=== PATIENT | female | born 1960 | race Caucasian/White ===

== ENCOUNTER → 2016-12-09 | Outpatient (CLI) | payer MEDICAID ==
[~2016-12-09] VITALS: Ht 170.2 cm; Wt 128.4 kg
[~2016-12-09] MED LIST: AMIO200T33 PO; ASPI325T4 PO; CARV3.1240 PO; FURO40TA4 PO; LISI10TA6 PO; SIMV-13 PO
[2016-12-09 11:25] VITALS: BP 152/85
[2016-12-09 12:05] VITALS: BP 137/77
[2016-12-09 16:26] LABS: Basophils # (auto) 0.1 uL; Basophils % (auto) 0.7 % (0.0-2.0); Eosinophils # (auto) 0.2 uL; Eosinophils % (auto) 2.1 % (0.0-7.0); Hematocrit 44.9 % (36.0-46.0); Lymphocytes # (auto) 2.6 uL; Lymphocytes % (auto) 31.6 % (10.0-50.0); Mean Corpuscular Hemoglobin 29.1 pg (28.0-32.0); Mean Corpuscular Hgb Conc. 33.4 g/dL (32.0-36.0); Mean Corpuscular Volume 87.3 fL (80.0-100.0); Mean Platelet Volume 11.3 fL (7.4-10.4); Monocytes # (auto) 0.7 uL; Monocytes % (auto) 9.2 % (0.0-12.0); Neutrophils # (auto) 4.6 uL; Neutrophils % (auto) 56.4 % (37.0-80.0); Platelet Count (auto) 279 10^3/uL (140-450); Red Cell Distribution Width 15.4 % (11.6-16.0); SUSPECT VIEW TRANSMISSION; White Blood Cell 8.1 10^3/uL (4.4-10.8)
[2016-12-09 16:43] LABS: Partial Thromboplastin Time 28.7 sec (22.64-33.71); Prothrombin Time 10.3 sec (9.37-12.3)
[2016-12-09 16:48] LABS: BUN/Creatinine Ratio 36.5; Calcium 9.1 mg/dL (8.5-10.1); Potassium 4.6 mmol/L (3.5-5.1)
== END | disposition home or self-care (01) ==
LOC: Rad HDHVI 11:00
PROVIDERS: ATTEND Internal Medicine Cardiovascular Disease
DX: I10 Essential (primary) hypertension (principal); D64.9 Anemia, unspecified; R79.1 Abnormal coagulation profile
CPT/HCPCS: 36415; 71020; 80048; 85025; 85610; 85730; 93005; G0463

== ENCOUNTER 2016-12-12 09:05 | Day surgery (SDC) | payer MEDICAID ==
[~2016-12-12] VITALS: Ht 170.2 cm; Wt 128.4 kg
[2016-12-12] MEDS ORDERED: MIDAZOLAM HCL 1MG/1ML-2 ML VIAL ONE (10:52)
[2016-12-12] MEDS ORDERED: fentaNYL CITRATE 100 MCG/2 ML VL ONE (10:52)
[2016-12-12] MEDS ORDERED: ANGIOMAX 250 MG VIAL IV ONE (10:53)
[2016-12-12] MEDS ORDERED: SODIUM CHL 0.9% 50 ML ONE (10:53)
== END 2016-12-12 14:00 | disposition home or self-care (01) ==
LOC: CATH 09:05
PROVIDERS: ATTEND Internal Medicine Cardiovascular Disease
DX: I25.5 Ischemic cardiomyopathy (principal); I10 Essential (primary) hypertension; E78.5 Hyperlipidemia, unspecified; E66.9 Obesity, unspecified
CPT/HCPCS: 93458; C1760; C1894; J3010; J7030; 99152; J2250

== ENCOUNTER → 2017-01-24 | Outpatient (CLI) | payer MEDICAID ==
[2017-01-24 09:35] VITALS: BP 120/68
[2017-01-24 10:08] VITALS: BP 123/67
[2017-01-24 16:25] LABS: Basophils # (auto) 0.1 uL; Basophils % (auto) 0.7 % (0.0-2.0); Eosinophils # (auto) 0.2 uL; Eosinophils % (auto) 2.7 % (0.0-7.0); Hematocrit 46.2 % (36.0-46.0); Hemoglobin 15.3 g/dL (12.2-16.2); Lymphocytes # (auto) 2.3 uL; Mean Corpuscular Volume 87.9 fL (80.0-100.0); Mean Platelet Volume 11.1 fL (7.4-10.4); Monocytes # (auto) 0.7 uL; Monocytes % (auto) 8.9 % (0.0-12.0); Neutrophils # (auto) 4.7 uL; Neutrophils % (auto) 58.7 % (37.0-80.0); Platelet Count (auto) 304 10^3/uL (140-450); White Blood Cell 8.1 10^3/uL (4.4-10.8)
[2017-01-24 16:32] LABS: INR 0.99 (0.9-1.15); Partial Thromboplastin Time 32.2 sec (22.64-33.71); Prothrombin Time 10.7 sec (9.37-12.3)
[2017-01-24 16:37] LABS: BUN/Creatinine Ratio 25.4; Calcium 9.3 mg/dL (8.5-10.1); Potassium 4.4 mmol/L (3.5-5.1)
== END | disposition home or self-care (01) ==
LOC: Rad HDHVI 09:00
PROVIDERS: ATTEND Internal Medicine Cardiovascular Disease
DX: I10 Essential (primary) hypertension (principal); D64.9 Anemia, unspecified; R79.1 Abnormal coagulation profile; Z01.812 Encounter for preprocedural laboratory examination
CPT/HCPCS: 36415; 71020; 80048; 85025; 85610; 85730; 93005; G0463

== ENCOUNTER 2017-01-30 10:59 | Inpatient (IN) | payer MEDICAID ==
[~2017-01-30 10:59] MED LIST changes: +IOHEXOL 350 MG/ML 100ML IJ ONE; +LIDOCAINE 2%HCL (LOCAL ANESTH.) INJ 20ML MDV ONE
[2017-01-30] MEDS ORDERED: VANCOMYCIN HCL 1000 MG VL ONE (11:51)
[2017-01-30] MEDS ORDERED: VANCOMYCIN 1GM/250ML D5W 250 ML IV ONE (11:51)
[2017-01-30] MEDS ORDERED: ceFAZolin 1GM/50ML D5W 50 ML IV ONE (11:51)
[2017-01-30] MEDS ORDERED: fentaNYL CITRATE 100 MCG/2 ML VL ONE (12:13)
[2017-01-30] MEDS ORDERED: MIDAZOLAM HCL 1MG/1ML-2 ML VIAL ONE ×2 (12:14→12:35)
[2017-01-30] MEDS ORDERED: LIDOCAINE 2%HCL (LOCAL ANESTH.) INJ 20ML MDV ONE (12:40)
[2017-01-30] MEDS ORDERED: ACETAMINOPHEN 325 MG TAB PO PRN (15:15)
[2017-01-30] MEDS ORDERED: NITROGLYCERIN 0.4 MG SL TAB SL PRN (15:15)
[2017-01-30] MEDS ORDERED: LORazepam 0.5 MG TAB PO PRN (15:15)
[2017-01-30] MEDS ORDERED: MORPHINE SULF INJ 2 MG/ML SYRINGE 1ML IV PRN (15:15)
[2017-01-30] MEDS ORDERED: HYDROcodone-ACET 5/325MG TAB ONE (15:21)
[2017-01-30 17:00] VITALS: BP 114/56
[2017-01-30] MEDS: HYDROcodone-ACET 5/325MG TAB PO PRN (21:08)
[2017-01-30] MEDS: VANCOMYCIN 1GM/250ML D5W 250 ML IV SCH (21:29)
[2017-01-30 22:04] VITALS: BP 106/63
[2017-01-31] MEDS: HYDROcodone-ACET 5/325MG TAB PO PRN (02:14)
[2017-01-31 05:01] VITALS: BP 130/77
[2017-01-31 09:00] VITALS: BP 147/80
[2017-01-31] MEDS: VANCOMYCIN 1GM/250ML D5W 250 ML IV SCH (09:36)
[2017-01-31 13:00] VITALS: BP 137/89
[2017-01-31 17:00] VITALS: BP 128/70
== END 2017-01-31 19:45 | disposition home or self-care (01) | DRG 161 ==
LOC: CATH 10:59 → TELE-WESTW 11:00
PROVIDERS: ADMIT Internal Medicine Cardiovascular Disease; ATTEND Internal Medicine Cardiovascular Disease
PROC: 0JH609Z Insertion of Cardiac Resynchronization Defibrillator Pulse Generator into Chest Subcutaneous Tissue and Fascia, Open Approach (ICD-10-PCS; principal; 2017-01-30)
PROC: 02HK3KZ Insertion of Defibrillator Lead into Right Ventricle, Percutaneous Approach (ICD-10-PCS; 2017-01-30)
PROC: 02H63KZ Insertion of Defibrillator Lead into Right Atrium, Percutaneous Approach (ICD-10-PCS; 2017-01-30)
DX: I50.21 Acute systolic (congestive) heart failure (principal); I42.0 Dilated cardiomyopathy; E66.01 Morbid (severe) obesity due to excess calories; J44.9 Chronic obstructive pulmonary disease, unspecified; I11.0 Hypertensive heart disease with heart failure; G47.33 Obstructive sleep apnea (adult) (pediatric)
CPT/HCPCS: 33225; 33249; 71010; 93005; 99152; J0690; J2250

== ENCOUNTER 2017-02-26 04:15 | Inpatient (IN) | payer MEDICAID ==
[~2017-02-26] VITALS: Ht 170.2 cm; Wt 137.2 kg
[~2017-02-26 04:15] MED LIST changes: -IOHEXOL 350 MG/ML 100ML IJ ONE; -LIDOCAINE 2%HCL (LOCAL ANESTH.) INJ 20ML MDV ONE
[2017-02-26] MEDS ORDERED: LORazepam 2MG/ML-1ML VIAL IV ONE (04:45)
[2017-02-26 04:57] LABS: Basophils # (auto) 0 uL; Basophils % (auto) 0.5 % (0.0-2.0); Eosinophils # (auto) 0.2 uL; Eosinophils % (auto) 2.9 % (0.0-7.0); Hematocrit 43.7 % (36.0-46.0); Hemoglobin 14.6 g/dL (12.2-16.2); Lymphocytes # (auto) 2.9 uL; Lymphocytes % (auto) 35.5 % (10.0-50.0); Mean Corpuscular Hemoglobin 29.4 pg (28.0-32.0); Mean Corpuscular Hgb Conc. 33.4 g/dL (32.0-36.0); Mean Corpuscular Volume 87.8 fL (80.0-100.0); Mean Platelet Volume 9.8 fL (7.4-10.4); Monocytes # (auto) 0.7 uL; Monocytes % (auto) 8.9 % (0.0-12.0); Neutrophils # (auto) 4.2 uL; Neutrophils % (auto) 52.2 % (37.0-80.0); Platelet Count (auto) 266 10^3/uL (140-450); Red Cell Distribution Width 15.1 % (11.6-16.0); SUSPECT VIEW TRANSMISSION; White Blood Cell 8.1 10^3/uL (4.4-10.8)
[2017-02-26 05:06] LABS: Albumin 3.5 g/dL (3.4-5.0); BUN/Creatinine Ratio 27.4; Calcium 8.7 mg/dL (8.5-10.1); Magnesium 1.8 mg/dL (1.6-2.6); Potassium 4.5 mmol/L (3.5-5.1)
[2017-02-26 05:15] LABS: Bilirubin, Total 0.7 mg/dL (0.2-1.0)
[2017-02-26] MEDS ORDERED: SODIUM CHLORIDE 0.9% 1,000 ML IV ONE (07:40)
[2017-02-26] MEDS ORDERED: DILTIAZEM HCL 25 MG/5 ML VIAL IV ONE (07:45)
[2017-02-26] MEDS ORDERED: ALBUTEROL SULF 2.5 MG/0.5ML(0.5%) NEB SOLN NEB PRN (13:00)
[2017-02-26] MEDS ORDERED: MORPHINE SULF INJ 2 MG/ML SYRINGE 1ML IV PRN ×2 (13:00)
[2017-02-26] MEDS ORDERED: NITROGLYCERIN 0.4 MG SL TAB SL PRN (13:00)
[2017-02-26] MEDS ORDERED: PROMETHAZINE HCL 25 MG/ML 1ML IV PRN (13:00)
[2017-02-26] MEDS ORDERED: LACTULOSE 20Gm/30ML SOLN PO PRN (13:00)
[2017-02-26] MEDS ORDERED: ACETAMINOPHEN 500 MG TAB PO PRN (13:00)
[2017-02-26] MEDS ORDERED: LORazepam 0.5 MG TAB PO PRN (13:00)
[2017-02-26] MEDS ORDERED: SPIR25TA89 (13:02)
[2017-02-26] MEDS ORDERED: SPIR25TA89 PO (13:13)
[2017-02-26 13:21] VITALS: BP 126/78
[2017-02-26] MEDS ORDERED: ASPirin-EC 325mg tab PO ONE (13:30)
[2017-02-26] MEDS ORDERED: CARVEDILOL 3.125 MG TAB PO ONE (13:30)
[2017-02-26] MEDS ORDERED: NITROGLYCERIN 0.2MG/HR TOPICAL PATCH TD ONE (13:30)
[2017-02-26] MEDS ORDERED: AMIODARONE HCL 200 MG TAB PO ONE (13:30)
[2017-02-26] MEDS ORDERED: LISINOPRIL 10 MG TAB PO ONE (13:30)
[2017-02-26 13:49] LABS: INR 1.01 (0.9-1.15); Partial Thromboplastin Time 31.4 sec (22.64-33.71); Prothrombin Time 10.9 sec (9.37-12.3)
[2017-02-26 14:17] VITALS: BP 104/60
[2017-02-26 17:00] VITALS: BP 127/82
[2017-02-26] MEDS: FUROSEMIDE 40 MG TAB PO SCH (17:36)
[2017-02-26] MEDS: CARVEDILOL 3.125 MG TAB PO SCH (21:42)
[2017-02-26] MEDS: ATORVASTATIN 20 MG TAB PO SCH (21:43)
[2017-02-26] MEDS: TEMAZEPAM 15 MG CAP PO PRN (21:43)
[2017-02-26 22:00] VITALS: BP 91/56
[2017-02-27 05:00] VITALS: BP 112/60
[2017-02-27] MEDS: FUROSEMIDE 40 MG TAB PO SCH ×3 (05:31→18:02)
[2017-02-27 06:04] LABS: Cholesterol 160 mg/dL (< 200); HDL Cholesterol 47 mg/dL (40-59); LDL Cholesterol 108 mg/dL (< 100); Triglycerides 127 mg/dL (< 150)
[2017-02-27 08:25] VITALS: BP 93/77
[2017-02-27] MEDS ORDERED: NITROGLYCERIN 0.2MG/HR TOPICAL PATCH TD SCH (10:00)
[2017-02-27] MEDS: ASPirin-EC 325mg tab PO SCH (10:00)
[2017-02-27] MEDS: LISINOPRIL 10 MG TAB PO SCH (10:02)
[2017-02-27] MEDS: AMIODARONE HCL 200 MG TAB PO SCH (10:02)
[2017-02-27] MEDS: CARVEDILOL 3.125 MG TAB PO SCH ×2 (10:03→22:00)
[2017-02-27 12:02] VITALS: BP 110/75
[2017-02-27] MEDS ORDERED: LIDOCAINE 2%HCL (LOCAL ANESTH.) INJ 20ML MDV ONE (12:21)
[2017-02-27] MEDS ORDERED: VANCOMYCIN HCL 1000 MG VL ONE (12:37)
[2017-02-27] MEDS ORDERED: ceFAZolin 1GM/50ML D5W 50 ML IV ONE ×2 (12:38→12:45)
[2017-02-27] MEDS ORDERED: VANCOMYCIN 1GM/250ML D5W 250 ML IV ONE ×2 (12:38→12:45)
[2017-02-27] MEDS ORDERED: VANCOMYCIN HCL 1000 MG VL IR ONE (12:45)
[2017-02-27] MEDS ORDERED: fentaNYL CITRATE 100 MCG/2 ML VL ONE (13:49)
[2017-02-27] MEDS ORDERED: MIDAZOLAM HCL 1MG/1ML-2 ML VIAL ONE (13:49)
[2017-02-27] MEDS ORDERED: IOHEXOL 350 MG/ML 100ML IJ ONE (13:57)
[2017-02-27] MEDS: HYDROcodone-ACET 5/325MG TAB PO PRN ×2 (15:44→22:32)
[2017-02-27 17:36] VITALS: BP 90/54
[2017-02-27] MEDS: VANCOMYCIN 1GM/250ML D5W 250 ML IV SCH (21:21)
[2017-02-27 22:00] VITALS: BP 104/67
[2017-02-27] MEDS: TEMAZEPAM 15 MG CAP PO PRN (22:31)
[2017-02-27] MEDS: ATORVASTATIN 20 MG TAB PO SCH (22:31)
[2017-02-28 05:00] VITALS: BP 90/56
[2017-02-28] MEDS: FUROSEMIDE 40 MG TAB PO SCH (06:00)
[2017-02-28 09:30] VITALS: BP 104/65
[2017-02-28] MEDS: VANCOMYCIN 1GM/250ML D5W 250 ML IV SCH (09:33)
[2017-02-28] MEDS: AMIODARONE HCL 200 MG TAB PO SCH (09:45)
[2017-02-28] MEDS: CARVEDILOL 3.125 MG TAB PO SCH (10:00)
[2017-02-28] MEDS: ASPirin-EC 325mg tab PO SCH (10:00)
[2017-02-28] MEDS: LISINOPRIL 10 MG TAB PO SCH (10:00)
[2017-02-28] MEDS ORDERED: DOXY-216 PO (10:38)
[2017-02-28 14:08] VITALS: BP 90/56
== END 2017-02-28 15:00 | disposition home or self-care (01) | DRG 177 ==
LOC: ER 04:15 → TELE 04:16 → TELE-EAST 14:17
PROVIDERS: ADMIT Internal Medicine; ATTEND Internal Medicine
PROC: 02WA3MZ Revision of Cardiac Lead in Heart, Percutaneous Approach (ICD-10-PCS; principal; 2017-02-27)
DX: T82.128A Displacement of other cardiac electronic device, initial encounter (principal); I42.0 Dilated cardiomyopathy; Z68.42 Body mass index [BMI] 45.0-49.9, adult; I11.0 Hypertensive heart disease with heart failure; I50.9 Heart failure, unspecified; E66.01 Morbid (severe) obesity due to excess calories; I25.10 Atherosclerotic heart disease of native coronary artery without angina pectoris; I25.5 Ischemic cardiomyopathy; E78.5 Hyperlipidemia, unspecified; J44.9 Chronic obstructive pulmonary disease, unspecified; G47.30 Sleep apnea, unspecified; Y83.8 Other surgical procedures as the cause of abnormal reaction of the patient, or of later complication, without mention of misadventure at the time of the procedure; I25.2 Old myocardial infarction; Z88.7 Allergy status to serum and vaccine; Z79.899 Other long term (current) drug therapy; Z90.49 Acquired absence of other specified parts of digestive tract; Z83.3 Family history of diabetes mellitus; Z80.0 Family history of malignant neoplasm of digestive organs; Z87.891 Personal history of nicotine dependence; Y92.89 Other specified places as the place of occurrence of the external cause
CPT/HCPCS: 33215; 36415; 71010; 71020; 80053; 80061; 80307; 82550; 83735; 84443; 84484; 85025; 85610; 85652; 85730; 86141; 93005; 94761; 96361; 96374; J0690; J2250

== ENCOUNTER → 2017-03-28 | Outpatient (CLI) | payer MEDICAID ==
[~2017-03-28] MED LIST changes: +DOXY-216 PO; +SPIR25TA89; +SPIR25TA89 PO
[2017-03-28 10:45] VITALS: BP 94/58
[2017-03-28 11:30] VITALS: BP 110/62
[2017-03-28 16:06] LABS: Basophils # (auto) 0 uL; Basophils % (auto) 0.7 % (0.0-2.0); CONDITION AutoValidated; Eosinophils # (auto) 0.2 uL; Eosinophils % (auto) 2.2 % (0.0-7.0); Hematocrit 41.2 % (36.0-46.0); Hemoglobin 13.8 g/dL (12.2-16.2); Lymphocytes # (auto) 1.7 uL; Lymphocytes % (auto) 24.8 % (10.0-50.0); Mean Corpuscular Hemoglobin 29.4 pg (28.0-32.0); Mean Corpuscular Hgb Conc. 33.5 g/dL (32.0-36.0); Mean Corpuscular Volume 87.7 fL (80.0-100.0); Mean Platelet Volume 10.7 fL (7.4-10.4); Monocytes # (auto) 0.6 uL; Monocytes % (auto) 8.3 % (0.0-12.0); Neutrophils # (auto) 4.5 uL; Platelet Count (auto) 274 10^3/uL (140-450); Red Cell Distribution Width 15.6 % (11.6-16.0)
[2017-03-28 16:17] LABS: INR 0.97 (0.9-1.15); Partial Thromboplastin Time 30.3 sec (22.64-33.71); Prothrombin Time 10.6 sec (9.37-12.3)
[2017-03-28 16:27] LABS: BUN/Creatinine Ratio 35.8; Calcium 8.9 mg/dL (8.5-10.1); Potassium 4.6 mmol/L (3.5-5.1)
== END | disposition home or self-care (01) ==
LOC: Rad HDHVI 10:34
PROVIDERS: ATTEND Internal Medicine Cardiovascular Disease
DX: I10 Essential (primary) hypertension (principal); D64.9 Anemia, unspecified; R79.1 Abnormal coagulation profile; Z01.812 Encounter for preprocedural laboratory examination
CPT/HCPCS: 36415; 71020; 80048; 85025; 85610; 85730; 93005; G0463

== ENCOUNTER 2017-04-03 10:36 | Inpatient (IN) | payer MEDICAID ==
[~2017-04-03] VITALS: Ht 170.2 cm; Wt 132.1 kg
[2017-04-03] MEDS ORDERED: VANCOMYCIN HCL 1000 MG VL IR ONE (11:15)
[2017-04-03] MEDS ORDERED: VANCOMYCIN 1GM/250ML D5W 250 ML IV ONE (11:15)
[2017-04-03] MEDS ORDERED: ceFAZolin 1GM/50ML D5W 50 ML IV ONE (11:15)
[2017-04-03] MEDS ORDERED: LIDOCAINE 2%HCL (LOCAL ANESTH.) INJ 20ML MDV ONE ×2 (13:49→13:51)
[2017-04-03] MEDS ORDERED: fentaNYL CITRATE 100 MCG/2 ML VL ONE (14:02)
[2017-04-03] MEDS ORDERED: MIDAZOLAM HCL 1MG/1ML-2 ML VIAL ONE (14:03)
[2017-04-03] MEDS ORDERED: NITROGLYCERIN 0.4 MG SL TAB SL PRN (15:45)
[2017-04-03] MEDS ORDERED: MORPHINE SULF INJ 2 MG/ML SYRINGE 1ML IV PRN (15:45)
[2017-04-03] MEDS ORDERED: ACETAMINOPHEN 325 MG TAB PO PRN (15:45)
[2017-04-03] MEDS ORDERED: LISINOPRIL 10 MG TAB PO ONE (16:00)
[2017-04-03] MEDS ORDERED: SPIRONOLACTONE 25 MG TAB PO ONE (16:00)
[2017-04-03] MEDS ORDERED: AMIODARONE HCL 200 MG TAB PO ONE (16:00)
[2017-04-03] MEDS: HYDROcodone-ACET 5/325MG TAB PO PRN ×2 (16:53→21:23)
[2017-04-03 17:40] VITALS: BP 133/70
[2017-04-03] MEDS: FUROSEMIDE 40 MG TAB PO SCH (17:53)
[2017-04-03] MEDS: CARVEDILOL 3.125 MG TAB PO SCH (21:24)
[2017-04-03] MEDS: VANCOMYCIN 1GM/250ML D5W 250 ML IV SCH (21:24)
[2017-04-03 22:00] VITALS: BP 105/60
[2017-04-03] MEDS ORDERED: ATORVASTATIN 20 MG TAB PO SCH (22:00)
[2017-04-04] VITALS (7 sets, daily range): BP systolic 104–130; BP diastolic 58–80
[2017-04-04] MEDS: HYDROcodone-ACET 5/325MG TAB PO PRN ×2 (02:40→06:47)
[2017-04-04 05:28] LABS: INR 1.01 (0.9-1.15)
[2017-04-04 05:29] LABS: BUN/Creatinine Ratio 27.1; Calcium 8.4 mg/dL (8.5-10.1); Potassium 4.4 mmol/L (3.5-5.1)
[2017-04-04] MEDS: FUROSEMIDE 40 MG TAB PO SCH ×2 (05:56→18:05)
[2017-04-04] MEDS ORDERED: SPIRONOLACTONE 25 MG TAB PO SCH (10:00)
[2017-04-04] MEDS ORDERED: AMIODARONE HCL 200 MG TAB PO SCH (10:00)
[2017-04-04] MEDS ORDERED: LISINOPRIL 10 MG TAB PO SCH (10:00)
[2017-04-04] MEDS: CARVEDILOL 3.125 MG TAB PO SCH (10:58)
[2017-04-04] MEDS: VANCOMYCIN 1GM/250ML D5W 250 ML IV SCH (10:59)
== END 2017-04-04 19:00 | disposition home or self-care (01) | DRG 177 ==
LOC: CATH 10:36 → CENTRAL 10:37 → TELE-CENTR 17:44
PROVIDERS: ADMIT Internal Medicine Cardiovascular Disease; ATTEND Internal Medicine Cardiovascular Disease
PROC: 02PA3MZ Removal of Cardiac Lead from Heart, Percutaneous Approach (ICD-10-PCS; principal; 2017-04-03)
PROC: 02HK3KZ Insertion of Defibrillator Lead into Right Ventricle, Percutaneous Approach (ICD-10-PCS; 2017-04-03)
PROC: 02H63KZ Insertion of Defibrillator Lead into Right Atrium, Percutaneous Approach (ICD-10-PCS; 2017-04-03)
DX: I42.0 Dilated cardiomyopathy (principal); I50.9 Heart failure, unspecified; Z68.42 Body mass index [BMI] 45.0-49.9, adult; E66.01 Morbid (severe) obesity due to excess calories
CPT/HCPCS: 33224; 33244; 36415; 71010; 80048; 85610; 93005; 99152; J0690; J2250

== ENCOUNTER → 2019-08-03 | Outpatient (CLI) | payer MEDICAID ==
[~2019-08-03] MED LIST changes: +SPIR25TA8; +SPIR25TA8 PO; -SPIR25TA89; -SPIR25TA89 PO
== END | disposition home or self-care (01) ==
LOC: Rad HDHVI 08:58
PROVIDERS: ATTEND Internal Medicine Cardiovascular Disease
DX: I42.0 Dilated cardiomyopathy (principal); I11.0 Hypertensive heart disease with heart failure; I50.23 Acute on chronic systolic (congestive) heart failure; I25.5 Ischemic cardiomyopathy
CPT/HCPCS: 93306

== ENCOUNTER → 2020-09-05 | Outpatient (CLI) | payer MEDICAID ==
[~2020-09-05] MED LIST changes: -DOXY-216 PO; +DOXY-286 PO; +LISI-648 PO; -LISI10TA6 PO
== END | disposition home or self-care (01) ==
LOC: Rad HDHVI 09:18
PROVIDERS: ATTEND Internal Medicine Cardiovascular Disease
DX: I42.0 Dilated cardiomyopathy (principal); Z95.810 Presence of automatic (implantable) cardiac defibrillator
CPT/HCPCS: 93306